=== PATIENT | male | born 1945 | race Caucasian/White ===

== ENCOUNTER 2017-11-04 12:25 | Inpatient (IN) | payer MEDICARE ==
--- NOTE | 2017-11-04 13:32 | XRAY ---
Indication: Short of breath 1 week. Comparison: August 01, 2011. PA/lateral chest again hyperinflated with left costophrenic angle blunting. No focal infiltrate, consolidation, or large effusion. Heart is not enlarged again demonstrating previous cardiothoracic surgery. Vascularity normal. Bony thorax intact again with mild osteopenia and degenerative changes. Impression: Stable nonacute hyperinflated chest with chronic features.
[2017-11-04 13:52] LABS: A-aADO2 35; ABG POTASSIUM 5.5 (3.5-5.1); ABG SITE LEFT RADIAL; ALLEN TEST OK? YES; ARTERIAL BLD GAS O2 SATURATION 96.7 % (95-100); ARTERIAL BLOOD GAS BASE EXCESS -5.8 (-2.0-2.0); ARTERIAL BLOOD GAS FIO2 21 %; ARTERIAL BLOOD GAS PCO2 30 mmHg (35-45); ARTERIAL BLOOD GAS PO2 77 mmHg (75-100); ARTERIAL BLOOD GAS pH 7.39 (7.35-7.45); CARBOXYHEMOGLOBIN 1.4 % THgb (0.0-6.9); HCO3- 18.2 (22-28); HGB O2 SAT 94.1 g/dF (94-100); Methhemoglobin 1.2 % (1.4-1.5); paO2 pAO1 0.69
[2017-11-04 13:54] LABS: INR 3.7 (0.8-3.0)
[2017-11-04 14:04] LABS: ALBUMIN 4.3 g/dL (3.4-5.0); ANION GAP 19.4 MEQ/L (5-15); BILIRUBIN,TOTAL 0.6 mg/dL (0.2-1.0); Calcium 9.1 mg/dL (8.5-10.1); Carbon Dioxide 19.3 mEq/L (21-32); Creatinine 1 2.7 mg/dl (0.55-1.30); Potassium 5.6 mEq/L (3.5-5.1); Total Protein 7.7 gm/dL (6.4-8.2)
[2017-11-04 14:17] LABS: INFLUENZA A NEGATIVE (NEGATIVE); INFLUENZA B NEGATIVE (NEGATIVE); RESPIRATORY SYNCTIAL VIRUS NEGATIVE (Negative)
[2017-11-04] MEDS: DUONEB 0.5-3 MG/3 ml Neb IH SCH ×3 (15:02→23:21)
[2017-11-04] MEDS ORDERED: Nitrostat 0.4 MG Tablet SL PRN (15:29)
[2017-11-04] MEDS ORDERED: NON-FORMULARY ITEM (Albuterol [Albuterol] 17 GM) IH PRN (15:29)
[2017-11-04] MEDS ORDERED: PROVENTIL COMMON CANISTER IH PRN (15:49)
[2017-11-04] MEDS ORDERED: MEDICATION INTERVENTION MC PRN ×2 (16:03→16:07)
[2017-11-04 16:39] LABS: BASOPHIL % 0.1 % (0.0-0.4); Basophil (Absolute #) 0.01 (0-0.4); Eosinophil % 0.3 % (0.00-5.0); Eosinophil (Absolute #) 0.03 (0-0.5); Granulocyte Absolute (ANC) 7.07 (1.4-6.9); Granulocytes % 81.6 % (36.0-66.0); Hematocrit 34.3 % (42-50); Hemoglobin 11.1 gm/dl (12.5-18.0); Lymphocyte (Absolute #) 0.83 (1.0-4.6); Lymphocytes % 9.6 % (24.0-44.0); Mean Cell Volume 102.1 fl (78-100); Mean Corpuscular Hgb Concent. 32.4 g/dl (32-36); Monocyte (Absolute #) 0.73 (0.0-1.3); Monocytes % 8.4 % (0.0-12.0); Platelet Count 108 K/mm3 (150-450); Red Blood Count 3.36 M/mm3 (4.1-5.6); Red Cell Distribution Width 12.8 % (11.5-14.0); White Blood Count 8.7 K/mm3 (4.0-10.5)
[2017-11-04] MEDS: LOPID 600 MG PO SCH (16:43)
[2017-11-04] MEDS: Lasix 40 MG PO SCH (16:46)
[2017-11-04] MEDS ORDERED: INSULIN ASPART 1 UNIT SQ SCH (17:00)
[2017-11-04] MEDS: Sodium Chloride 0.9% 1000 ML 1,000 ML IV SCH (17:28)
[2017-11-04] MEDS: ROCEPHIN 1 Gm-D5w 50 ml Bag** 1 G/50 ML IVPB IV SCH (17:28)
[2017-11-04] MEDS: NovoLOG Insulin SQ SCH ×2 (17:28→22:20)
[2017-11-04] MEDS: OSELTAMIVIR PHOSPHATE 30 MG CAP PO SCH ×2 (17:36→21:36)
[2017-11-04] MEDS ORDERED: Advair Hfa 115/21 Common canister IH SCH (19:00)
[2017-11-04] MEDS: ADVAIR 500-50 DISKUS IH SCH (19:49)
[2017-11-04] MEDS: Lopressor 25MG Tab PO SCH (21:35)
[2017-11-04] MEDS: Klor Con 10 MEQ PO SCH (21:35)
[2017-11-04] MEDS: ZOCOR 20MG PO SCH (21:36)
[2017-11-04] MEDS ORDERED: NON-FORMULARY ITEM (Potassium Chloride 20 Meq [Klor-Con 20 Meq] 20 MEQ) PO SCH (22:00)
[2017-11-04] MEDS ORDERED: NON-FORMULARY ITEM (Budesonide/Formoterol Fumarate [Symbicort 160-4.5 Mcg Inhaler] 6 GM) IH SCH (22:00)
[2017-11-05] MEDS: DUONEB 0.5-3 MG/3 ml Neb IH SCH ×6 (03:01→23:31)
[2017-11-05] MEDS: Sodium Chloride 0.9% 1000 ML 1,000 ML IV SCH ×2 (03:20→13:54)
[2017-11-05] MEDS: ADVAIR 500-50 DISKUS IH SCH ×2 (07:18→19:15)
[2017-11-05] MEDS: LOPID 600 MG PO SCH ×2 (07:48→17:02)
[2017-11-05] MEDS: NovoLOG Insulin SQ SCH ×2 (08:30→12:45)
[2017-11-05] MEDS: Zestril 10 MG PO SCH (09:34)
[2017-11-05] MEDS: THERAGRAN MULTIVITAMIN PO SCH (09:34)
[2017-11-05] MEDS: FOLATE 1 MG PO SCH (09:34)
[2017-11-05] MEDS: Lopressor 25MG Tab PO SCH ×2 (09:34→21:12)
[2017-11-05] MEDS: Klor Con 10 MEQ PO SCH (09:34)
[2017-11-05] MEDS: NORVASC 5 MG PO SCH (09:35)
[2017-11-05] MEDS: Vitamin B-12 500 MCG PO SCH (09:35)
[2017-11-05] MEDS: OSELTAMIVIR PHOSPHATE 30 MG CAP PO SCH ×2 (09:35→21:12)
[2017-11-05] MEDS: ROCEPHIN 1 Gm-D5w 50 ml Bag** 1 G/50 ML IVPB IV SCH (09:35)
[2017-11-05] MEDS: Lasix 40 MG PO SCH ×2 (09:35→17:02)
[2017-11-05] MEDS: ECOTRIN 81 MG PO SCH (09:35)
[2017-11-05] MEDS ORDERED: NON-FORMULARY ITEM (Liraglutide [Victoza 2-Pak] 1.2 MG) SQ SCH (10:00)
[2017-11-05] MEDS ORDERED: SAW PALMETTO FRUIT 450 MG PO SCH (10:00)
[2017-11-05] MEDS ORDERED: Lantus Insulin SQ SCH ×2 (10:00→17:00)
[2017-11-05] MEDS ORDERED: NON-FORMULARY ITEM (Folic Acid [Folic Acid] 0.8 MG) PO SCH (10:00)
[2017-11-05] MEDS ORDERED: NON-FORMULARY ITEM (Multivitamin [Multivitamins] 1 EACH) PO SCH (10:00)
[2017-11-05] MEDS ORDERED: INSULIN GLARGINE HUM REC ANLOG 7 UNIT SQ SCH (10:00)
[2017-11-05 11:40] LABS: INR 4.08 (0.8-3.0)
[2017-11-05 13:13] LABS: ALBUMIN 3.5 g/dL (3.4-5.0); ANION GAP 18.9 MEQ/L (5-15); BILIRUBIN,TOTAL 0.4 mg/dL (0.2-1.0); Calcium 8.4 mg/dL (8.5-10.1); Carbon Dioxide 17.6 mEq/L (21-32); Creatinine 1 2.66 mg/dl (0.55-1.30); Potassium 5.3 mEq/L (3.5-5.1); Total Protein 6.8 gm/dL (6.4-8.2)
--- NOTE | 2017-11-05 13:28 | PCM.NOTE ---
Date and Time: 11/05/17 1326 Subjective Assessment: still very short of breath, feels very exhausted - Review of Systems Constitutional: Lethargy, Malaise, Weakness, No Fever, No Chills Eyes: No Symptoms Ears, Nose, & Throat: No Symptoms Respiratory: Orthopnea, Short Of Breath, No Cough Cardiac: No Chest Pain, No Edema, No Syncope Abdominal/Gastrointestinal: No Abdominal Pain, No Nausea, No Vomiting, No Diarrhea Genitourinary Symptoms: No Dysuria Musculoskeletal: No Back Pain, No Neck Pain Skin: No Rash Neurological: No Dizziness, No Focal Weakness, No Sensory Changes Psychological: No Symptoms Endocrine: No Symptoms Hematologic/Lymphatic: No Symptoms Immunological/Allergic: No Symptoms Objective Exam General Appearance: no apparent distress, alert Neurologic Exam: alert, oriented x 3, cooperative, normal mood/affect, nml cerebellar function, sensation nml, No motor deficits Skin Exam: normal color, warm, dry Eye Exam: PERRL, EOMI, eyes nml inspection Ears, Nose, Throat Exam: normal ENT inspection, pharynx normal, moist mucous membranes Neck Exam: normal inspection, non-tender, supple, full range of motion Respiratory Exam: prolonged expirations, crackles/rales, rhonchi, No respiratory distress Cardiovascular Exam: regular rate/rhythm, normal heart sounds Gastrointestinal/Abdomen Exam: soft, No tenderness, No mass Extremity Exam: normal inspection, normal range of motion Back Exam: normal inspection, normal range of motion, No CVA tenderness, No vertebral tenderness Male Genitalia Exam: deferred Rectal Exam: deferred OBJECTIVE DATA Vital Signs: Vital Signs - 24 hr Temp Pulse Resp BP Pulse Ox 11/05/17 10:35 78 22 95 11/05/17 07:31 54 L 20 94 L 11/05/17 07:16 98.2 F 64 20 122/59 96 11/05/17 03:57 98.7 F 56 L 23 114/52 94 L 11/05/17 03:01 56 L 23 88 L 11/05/17 00:00 98.7 F 57 L 23 137/61 93 L 11/04/17 23:21 57 L 23 93 L 11/04/17 20:00 98.7 F 56 L 20 117/52 92 L 11/04/17 19:49 52 L 24 93 L 11/04/17 16:34 98 F 60 20 133/59 97 02/13/18 15:00 84 16 96 11/04/17 13:57 98.7 F 59 L 22 150/60 95 Pain Assessment - Last Documented Pain Intensity 3 Pain Scale Used 0-10 Pain Scale Intake and Output: Intake & Output 11/03/17 11/04/17 11/05/17 11/06/17 11:59 11:59 11:59 11:59 Intake Total 2160 240 Output Total 1050 Balance 1110 240 Weight 91.1 kg Lab Results: Accuchecks Date 11/04/17 Date 11/04/17 Time 16:19 Time 15:30 Accucheck Value: 210 Accucheck Value: 101 Accucheck Value: 248 Accucheck Value: 136 Accucheck Value: 145 Lab Results-Last 24 Hours 11/04/17 11/04/17 11/04/17 Range/Units 12:49 13:31 13:31 WBC 8.7 (4.0-10.5) K/mm3 RBC 3.36 L (4.1-5.6) M/mm3 Hgb 11.1 L (12.5-18.0) gm/dl Hct 34.3 L (42-50) % MCV 102.1 H (78-100) fl MCH 33.0 H (26-32) pg MCHC 32.4 (32-36) g/dl RDW 12.8 (11.5-14.0) % Plt Count 108 L (150-450) K/mm3 MPV 13.0 H (6-9.5) fl Gran % 81.6 H (36.0-66.0) % Lymphocytes % 9.6 L (24.0-44.0) % Monocytes % 8.4 (0.0-12.0) % Eosinophils % 0.3 (0.00-5.0) % Basophils % 0.1 (0.0-0.4) % Basophils # 0.01 (0-0.4) INR (0.8-3.0) Puncture Site LEFT RADIAL pCO2 30 L (35-45) mmHg pO2 77 (75-100) mmHg Base Excess -5.8 L (-2.0-2.0) O2 Saturation 94.1 (94-100) g/dF ABG pH 7.39 (7.35-7.45) ABG HCO3 18.2 L (22-28) ABG O2 Sat (Measured) 96.7 (95-100) % Manjit Test YES A-a Gradient 35 a/A Ratio 0.69 Hemoglobin 11.0 Carboxyhemoglobin 1.4 (0.0-6.9) % THgb Methemoglobin 1.2 L (1.4-1.5) % Potassium 5.5 H 5.6 H (3.5-5.1) Temperature 37.0 C POC O2 Flow Rate 21 % Sodium 138 (136-145) mEq/L Chloride 105 (98-107) mEq/L Carbon Dioxide 19.3 L (21-32) mEq/L Anion Gap 19.4 H (5-15) MEQ/L BUN 105 H (9-20) mg/dL Creatinine 2.70 H (0.55-1.30) mg/dl Estimated GFR 25 ML/MIN Glucose 103 (70-110) MG/DL Hemoglobin A1c (4.5-6.2) Calcium 9.1 (8.5-10.1) mg/dL Total Bilirubin 0.60 (0.2-1.0) mg/dL AST 19 (15-37) U/L ALT 15 (12-78) U/L Alkaline Phosphatase 90 (46-116) U/L Serum Total Protein 7.7 (6.4-8.2) gm/dL Albumin 4.3 (3.4-5.0) g/dL Influenza Type A Ag (NEGATIVE) Influenza Type B Ag (NEGATIVE) RSV (PCR) (Negative) 11/04/17 11/04/17 11/04/17 Range/Units 13:31 13:31 17:35 WBC (4.0-10.5) K/mm3 RBC (4.1-5.6) M/mm3 Hgb (12.5-18.0) gm/dl Hct (42-50) % MCV (78-100) fl MCH (26-32) pg MCHC (32-36) g/dl RDW (11.5-14.0) % Plt Count (150-450) K/mm3 MPV (6-9.5) fl Gran % (36.0-66.0) % Lymphocytes % (24.0-44.0) % Monocytes % (0.0-12.0) % Eosinophils % (0.00-5.0) % Basophils % (0.0-0.4) % Basophils # (0-0.4) INR 3.70 H (0.8-3.0) Puncture Site pCO2 (35-45) mmHg pO2 (75-100) mmHg Base Excess (-2.0-2.0) O2 Saturation (94-100) g/dF ABG pH (7.35-7.45) ABG HCO3 (22-28) ABG O2 Sat (Measured) (95-100) % Manjit Test A-a Gradient a/A Ratio Hemoglobin Carboxyhemoglobin (0.0-6.9) % THgb Methemoglobin (1.4-1.5) % Potassium (3.5-5.1) Temperature C POC O2 Flow Rate % Sodium (136-145) mEq/L Chloride (98-107) mEq/L Carbon Dioxide (21-32) mEq/L Anion Gap (5-15) MEQ/L BUN (9-20) mg/dL Creatinine (0.55-1.30) mg/dl Estimated GFR ML/MIN Glucose (70-110) MG/DL Hemoglobin A1c 6.2 (4.5-6.2) Calcium (8.5-10.1) mg/dL Total Bilirubin (0.2-1.0) mg/dL AST (15-37) U/L ALT (12-78) U/L Alkaline Phosphatase (46-116) U/L Serum Total Protein (6.4-8.2) gm/dL Albumin (3.4-5.0) g/dL Influenza Type A Ag NEGATIVE (NEGATIVE) Influenza Type B Ag NEGATIVE (NEGATIVE) RSV (PCR) NEGATIVE (Negative) 11/05/17 11/05/17 Range/Units 11:00 12:50 WBC (4.0-10.5) K/mm3 RBC (4.1-5.6) M/mm3 Hgb (12.5-18.0) gm/dl Hct (42-50) % MCV (78-100) fl MCH (26-32) pg MCHC (32-36) g/dl RDW (11.5-14.0) % Plt Count (150-450) K/mm3 MPV (6-9.5) fl Gran % (36.0-66.0) % Lymphocytes % (24.0-44.0) % Monocytes % (0.0-12.0) % Eosinophils % (0.00-5.0) % Basophils % (0.0-0.4) % Basophils # (0-0.4) INR 4.08 H (0.8-3.0) Puncture Site pCO2 (35-45) mmHg pO2 (75-100) mmHg Base Excess (-2.0-2.0) O2 Saturation (94-100) g/dF ABG pH (7.35-7.45) ABG HCO3 (22-28) ABG O2 Sat (Measured) (95-100) % Manjit Test A-a Gradient a/A Ratio Hemoglobin Carboxyhemoglobin (0.0-6.9) % THgb Methemoglobin (1.4-1.5) % Potassium 5.3 H (3.5-5.1) Temperature C POC O2 Flow Rate % Sodium 136 (136-145) mEq/L Chloride 105 (98-107) mEq/L Carbon Dioxide 17.6 L (21-32) mEq/L Anion Gap 18.9 H (5-15) MEQ/L BUN 90 H (9-20) mg/dL Creatinine 2.66 H (0.55-1.30) mg/dl Estimated GFR 25 ML/MIN Glucose 153 H (70-110) MG/DL Hemoglobin A1c (4.5-6.2) Calcium 8.4 L (8.5-10.1) mg/dL Total Bilirubin 0.40 (0.2-1.0) mg/dL AST 15 (15-37) U/L ALT 13 (12-78) U/L Alkaline Phosphatase 76 (46-116) U/L Serum Total Protein 6.8 (6.4-8.2) gm/dL Albumin 3.5 (3.4-5.0) g/dL Influenza Type A Ag (NEGATIVE) Influenza Type B Ag (NEGATIVE) RSV (PCR) (Negative) Radiology Exams: Radiology Procedures Category Date Time Status CHEST 2 VIEWS (PA AND LAT) Urgent Exams 11/04/17 13:12 Completed CHEST WITHOUT CONTRAST [CT] Stat Exams 11/05/17 13:25 Ordered Multi-Disciplinary Progress Notes: Multi-Disciplinary Progress Notes 11/05/17 10:25 (created 11/05/17 10:51) Respiratory Note by Josephine Bojorquez PT QUALIFIED FOR HOME OXYGEN PER DR. MATAMOROS ORDER. PT'S OXYGEN SAT ON ROOM AIR WHILE AT REST WAS 89%. PT WAS THEN WALKED DOWN [place] ON ROOM AIR WITH O2 SAT AT 94% WHILE WALKING. PT VISIBLY SOB WHILE WALKING EVEN THOUGH OXYGEN LEVEL DIDN'T DROP. NURSE AWARE. Initialized on 11/05/17 10:51 - END OF NOTE Assessment/Plan (1) Viral bronchitis Current Visit: Yes Status: Acute Assessment & Plan: Chief Complaint Diagnosis SOB Allergies Allergy/AdvReac Type Severity Reaction Status Date / Time No Known Drug Allergies Allergy Unverified 11/04/17 15:04 Vital Signs (Last 24 hours) Temp Pulse Resp BP Pulse Ox 11/05/17 10:35 78 22 95 11/05/17 07:31 54 L 20 94 L 11/05/17 07:16 98.2 F 64 20 122/59 96 11/05/17 03:57 98.7 F 56 L 23 114/52 94 L 11/05/17 03:01 56 L 23 88 L 11/05/17 00:00 98.7 F 57 L 23 137/61 93 L 11/04/17 23:21 57 L 23 93 L 11/04/17 20:00 98.7 F 56 L 20 117/52 92 L 11/04/17 19:49 52 L 24 93 L 11/04/17 16:34 98 F 60 20 133/59 97 11/04/17 15:00 84 16 96 11/04/17 13:57 98.7 F 59 L 22 150/60 95 Home Medications Medication Instructions Recorded Confirmed Last Taken Type Albuterol 17 gm IH Q6H PRN 11/04/17 11/04/17 11/04/17 History Amlodipine Besylate 5 mg 5 mg PO DAILY 11/04/17 11/04/17 11/04/17 History [Norvasc 5 mg] Aspirin EC 81 mg [Ecotrin 81 81 mg PO DAILY 11/04/17 11/04/17 11/04/17 History mg] Budesonide/Formoterol Fumarate 6 gm IH BID 11/04/17 11/04/17 11/04/17 History [Symbicort 160-4.5 Mcg Inhaler] Cyanocobalamin 500 Mcg [Vitamin 500 mcg PO DAILY 11/04/17 11/04/17 11/04/17 History B-12 500 MCG] Folic Acid 0.8 mg PO DAILY 11/04/17 11/04/17 11/04/17 History Furosemide 40 mg [Lasix 40 40 mg PO BID 11/04/17 11/04/17 11/04/17 History MG] Gemfibrozil 600 mg [Lopid 600 600 mg PO BID 11/04/17 11/04/17 11/04/17 History mg] Insulin Aspart [Novolog Flexpen] 0 unit SQ TIDWMEALS 11/04/17 11/04/17 11/04/17 History Insulin Glargine,Hum.rec.anlog 7 unit SQ DAILY 11/04/17 11/04/17 11/04/17 History [Familia Do] Liraglutide [Victoza 2-Tushar] 1.2 mg SQ DAILY 11/04/17 11/04/17 11/04/17 History Lisinopril 10 mg [Zestril 10 10 mg PO DAILY 11/04/17 11/04/17 11/04/17 History MG] Metoprolol Tartrate 25 mg 25 mg PO BID 11/04/17 11/04/17 11/04/17 History [Lopressor 25MG Tab] Multivitamin [Multivitamins] 1 each PO DAILY 11/04/17 11/04/17 11/04/17 History Nitroglycerin 0.4 mg Tablet 0.4 mg SL Q5MIN PRN MR X 3 PRN 11/04/17 11/04/17 Unknown History [Nitrostat 0.4 MG Tablet] Potassium Chloride 20 Meq 20 meq PO BID 11/04/17 11/04/17 11/04/17 History [Klor-Con 20 MEQ] Saw [place] Fruit [Saw [place]] 450 mg PO DAILY 11/04/17 11/04/17 11/04/17 History Simvastatin 20Mg [Zocor 20Mg] 20 mg PO HS 11/04/17 11/04/17 11/04/17 History Warfarin Sodium 2 mg [Coumadin 2 mg PO DAILY 11/04/17 11/04/17 11/04/17 History 2 MG] Azithromycin [Zithromax] 250 mg PO DAILY 5 Days #6 tablet 11/05/17 Unknown Rx Current Medications Generic Name Dose Route Start Last Admin Trade Name Freq PRN Reason Stop Dose Admin Albuterol Sulfate 2 puff 11/04/17 15:49 Proventil Common Canister IH 12/04/17 15:48 Q6H PRN PRN Albuterol/Ipratropium 3 ml 11/04/17 15:00 11/05/17 10:35 Duoneb 0.5-3 Mg/3 Ml Neb IH 12/04/17 14:59 3 ml Q4HRT RIGO Administration Amlodipine Besylate 5 mg 11/05/17 10:00 11/05/17 09:35 Norvasc 5 Mg PO 12/05/17 09:59 5 mg DAILY RIGO Administration Aspirin 81 mg 11/05/17 10:00 11/05/17 09:35 Ecotrin 81 Mg PO 12/05/17 09:59 81 mg DAILY RIGO Administration Cyanocobalamin 500 mcg 11/05/17 10:00 11/05/17 09:35 Vitamin B-12 500 Mcg PO 12/05/17 09:59 500 mcg DAILY RIGO Administration Folic Acid 1 mg 11/05/17 10:00 11/05/17 09:34 Folate 1 Mg PO 12/05/17 09:59 1 mg DAILY RIGO Administration Furosemide 40 mg 11/04/17 17:00 11/05/17 09:35 Lasix 40 Mg PO 12/04/17 16:59 40 mg BID DIURETIC RIGO Administration Gemfibrozil 600 mg 11/04/17 16:30 11/05/17 07:48 Lopid 600 Mg PO 12/04/17 16:29 600 mg BIDAC RIGO Administration Ceftriaxone Sodium/Dextrose 1 g in 50 mls @ 100 mls/hr 11/04/17 17:15 09:35 Rocephin 1 Gm-D5w 50 Ml Bag IV 12/04/17 17:14 100 mls/hr Q24H10 RIGO Administration Sodium Chloride 1,000 mls @ 100 mls/hr 11/04/17 17:00 11/05/17 03:20 Sodium Chloride 0.9% 1000 Ml IV 12/04/17 16:59 100 mls/hr .Q10H RIGO Administration Lisinopril 10 mg 11/05/17 10:00 11/05/17 09:34 Zestril 10 Mg PO 12/05/17 09:59 10 mg DAILY RIGO Administration Methylprednisolone Sodium Succinate 40 mg 11/05/17 14:00 Solu-Medrol 40 Mg IV 12/05/17 13:59 BID RIGO Metoprolol Tartrate 25 mg 11/04/17 22:00 11/05/17 09:34 Lopressor 25mg Tab PO 12/04/17 21:59 25 mg BID RIGO Administration Multivitamins 1 tab 11/05/17 10:00 11/05/17 09:34 Theragran Multivitamin PO 12/05/17 09:59 1 tab DAILY RIGO Administration Nitroglycerin 0.4 mg 11/04/17 15:29 Nitrostat 0.4 Mg Tablet SL 12/04/17 15:28 Q5MIN PRN MR X 3 PRN CHEST PAIN Oseltamivir Phosphate 30 mg 11/04/17 17:30 11/05/17 09:35 Oseltamivir Phosphate 30 Mg Cap PO 11/08/17 22:01 30 mg BID RIGO Administration Toujeo Insulin 7 each 11/05/17 17:00 SQ 12/05/17 16:59 1700 RIGO Novolog Insulin 0 each 11/05/17 17:00 SQ 12/05/17 16:59 TIDWM RIGO Potassium Chloride 20 meq 11/04/17 22:00 11/05/17 09:34 Klor Con 10 Meq PO 12/04/17 21:59 20 meq BID RIGO Administration Fluticasone/Salmeterol 1 each 11/04/17 19:00 11/05/17 07:18 Advair 500-50 Diskus IH 12/04/17 18:59 1 each BIDRT RIGO Administration Simvastatin 20 mg 11/04/17 22:00 11/04/17 21:36 Zocor 20mg PO 12/04/17 21:59 20 mg HS IRGO Administration Warfarin Sodium 2 mg 11/06/17 18:00 Coumadin 2 Mg PO 12/06/17 17:59 [email or web address] [facility] Warfarin Sodium 1 mg 11/05/17 18:00 Coumadin 1 Mg PO 12/05/17 17:59 [email or web address] [facility] Discontinued Medications Generic Name Dose Route Start Last Admin Trade Name Pawel PRN Reason Stop Dose Admin Insulin Aspart 1 unit 11/04/17 17:00 11/05/17 12:45 Novolog Insulin SQ 12/04/17 16:59 7 unit TIDWM [facility] Administration Insulin Glargine 6 unit 11/05/17 10:00 11/05/17 12:48 Lantus Insulin SQ 12/05/17 09:59 Not Given DAILY [facility] Fluticasone/Salmeterol 2 puff 11/04/17 19:00 Advair Hfa 115/21 Common Canister* IH 12/04/17 18:59 BIDRT RIGO Intake & Output (Last 24 hours) 11/03/17 11/04/17 11/05/17 11/06/17 11:59 11:59 11:59 11:59 Intake Total 2160 240 Output Total 1050 Balance 1110 240 Weight 91.1 kg Laboratory Results (Last 24 hours) 11/05/17 11/05/17 11/04/17 12:50 11:00 17:35 WBC RBC Hgb Hct MCV MCH MCHC RDW Plt Count MPV Gran % Lymphocytes % Monocytes % Eosinophils % Basophils % Basophils # INR 4.08 H Puncture Site pCO2 pO2 Base Excess O2 Saturation ABG pH ABG HCO3 ABG O2 Sat (Measured) Manjit Test A-a Gradient a/A Ratio Hemoglobin Carboxyhemoglobin Methemoglobin Potassium 5.3 H Temperature POC O2 Flow Rate Sodium 136 Chloride 105 Carbon Dioxide 17.6 L Anion Gap 18.9 H BUN 90 H Creatinine 2.66 H Estimated GFR 25 Glucose 153 H Hemoglobin A1c 6.2 Calcium 8.4 L Total Bilirubin 0.40 AST 15 ALT 13 Alkaline Phosphatase 76 Serum Total Protein 6.8 Albumin 3.5 Influenza Type A Ag Influenza Type B Ag RSV (PCR) 11/04/17 11/04/17 11/04/17 13:31 13:31 13:31 WBC RBC Hgb Hct MCV MCH MCHC RDW Plt Count MPV Gran % Lymphocytes % Monocytes % Eosinophils % Basophils % Basophils # INR 3.70 H Puncture Site pCO2 pO2 Base Excess O2 Saturation ABG pH ABG HCO3 ABG O2 Sat (Measured) Manjit Test A-a Gradient a/A Ratio Hemoglobin Carboxyhemoglobin Methemoglobin Potassium 5.6 H Temperature POC O2 Flow Rate Sodium 138 Chloride 105 Carbon Dioxide 19.3 L Anion Gap 19.4 H BUN 105 H Creatinine 2.70 H Estimated GFR 25 Glucose 103 Hemoglobin A1c Calcium 9.1 Total Bilirubin 0.60 AST 19 ALT 15 Alkaline Phosphatase 90 Serum Total Protein 7.7 Albumin 4.3 Influenza Type A Ag NEGATIVE Influenza Type B Ag NEGATIVE RSV (PCR) NEGATIVE 11/04/17 11/04/17 13:31 12:49 WBC 8.7 RBC 3.36 L Hgb 11.1 L Hct 34.3 L MCV 102.1 H MCH 33.0 H MCHC 32.4 RDW 12.8 Plt Count 108 L MPV 13.0 H Gran % 81.6 H Lymphocytes % 9.6 L Monocytes % 8.4 Eosinophils % 0.3 Basophils % 0.1 Basophils # 0.01 INR Puncture Site LEFT RADIAL pCO2 30 L pO2 77 Base Excess -5.8 L O2 Saturation 94.1 ABG pH 7.39 ABG HCO3 18.2 L ABG O2 Sat (Measured) 96.7 Manjit Test YES A-a Gradient 35 a/A Ratio 0.69 Hemoglobin 11.0 Carboxyhemoglobin 1.4 Methemoglobin 1.2 L Potassium 5.5 H Temperature 37.0 POC O2 Flow Rate 21 Sodium Chloride Carbon Dioxide Anion Gap BUN Creatinine Estimated GFR Glucose Hemoglobin A1c Calcium Total Bilirubin AST ALT Alkaline Phosphatase Serum Total Protein Albumin Influenza Type A Ag Influenza Type B Ag RSV (PCR) Orders (Last 24 hours) Category Date Time Status Accucheck ACHS Care 11/04/17 12:49 Active Admission/Status Order ROUTINE Care 11/04/17 12:36 Active Miscellaneous Nursing Order ROUTINE Care 11/04/17 12:49 Active Miscellaneous Nursing Order ROUTINE Care 11/04/17 16:09 Active Cardio-Pulmonary Rehab .as ordered Cons 11/04/17 13:57 Active 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 ROUTINE Cons 11/04/17 14:16 Active 1800 Calorie ADA Diet 11/04/17 Dinner Active Nutritional Admission Screen once Diet 11/04/17 14:16 Completed CHEST 2 VIEWS (PA AND LAT) Urgent Exams 11/04/17 13:12 Completed CHEST WITHOUT CONTRAST [CT] Stat Exams 11/05/17 13:25 Ordered ARTERIAL BLOOD GASES Urgent Lab 11/04/17 12:49 Completed CBC AM.LAB Lab 11/06/17 04:00 Ordered CBC W DIFF Urgent Lab 11/04/17 13:31 Completed CMP AM.LAB Lab 11/06/17 04:00 Ordered CMP Urgent Lab 11/04/17 13:31 Completed CMP Urgent Lab 11/05/17 12:50 Completed HEMOGLOBIN A1C Urgent Lab 11/04/17 17:35 Completed PROTIME WITH INR Urgent Lab 11/04/17 13:31 Completed PT INR [PROTIME WITH INR] Urgent Lab 11/05/17 11:00 Completed Respiratory Panel Urgent Lab 11/04/17 13:31 Completed Albuterol Common Canister [Proventil Common Canister Med 11/04/17 15:49 Active ] 2 puff IH Q6H PRN PRN Albuterol/Ipratropium 3ml Neb* [DUONEB 0.5-3 MG/3 ml Med 11/04/17 15:00 Active Neb] 3 ml IH Q4HRT Amlodipine Besylate 5 mg [Norvasc 5 mg] Med 11/05/17 10:00 Active 5 mg PO DAILY Aspirin EC 81 mg [Ecotrin 81 mg] Med 11/05/17 10:00 Active 81 mg PO DAILY Ceftriaxone 1 GM/50 ML PREMIX* [ROCEPHIN 1 Gm-D5w 50 ml Med 11/04/17 17:15 Active Bag] 1 g in 50 ml IV Q24H10 Cyanocobalamin 500 Mcg [Vitamin B-12 500 MCG] Med 11/05/17 10:00 Active 500 mcg PO DAILY Fluticasone/Salmeterol 115/21 [Advair Hfa 115/21 Common Med 11/04/17 19:00 Discontinued canister*] 2 puff IH BIDRT Fluticasone/Salmeterol 500/50* [Advair 500-50 Diskus Med 11/04/17 19:00 Active ] 1 each IH BIDRT Folic Acid 1 mg [Folate 1 mg] Med 11/05/17 10:00 Active 1 mg PO DAILY Furosemide 40 mg [Lasix 40 MG] Med 11/04/17 17:00 Active 40 mg PO BID DIURETIC Gemfibrozil 600 mg [Lopid 600 mg] Med 11/04/17 16:30 Active 600 mg PO BIDAC Insulin Aspart [NovoLOG Insulin] Med 11/04/17 17:00 Discontinued 1 unit SQ TIDWM Insulin Glargine [Lantus Insulin] Med 11/05/17 10:00 Discontinued 6 unit SQ DAILY Lisinopril 10 mg [Zestril 10 MG] Med 11/05/17 10:00 Active 10 mg PO DAILY Medication Intervention Med 11/04/17 16:03 Active 0 each MC PRN PRN Medication Intervention Med 11/04/17 16:07 Active 0 each MC PRN PRN Methylprednisolone Sod Suc 40M [solu-MEDROL 40 MG] Med 11/05/17 14:00 Active 40 mg IV BID Metoprolol Tartrate 25 mg [Lopressor 25MG Tab] Med 11/04/17 22:00 Active 25 mg PO BID Multivitamins,Therapeutic Tab* [Theragran Multivitamin* Med 11/05/17 10:00 Active ] 1 tab PO DAILY NaCl 0.9% 1000 ml [Sodium Chloride 0.9% 1000 ML] 1,000 Med 11/04/17 17:00 Active ml IV 100 mls/hr Nitroglycerin 0.4 mg Tablet [Nitrostat 0.4 MG Tablet Med 11/04/17 15:29 Active ] 0.4 mg SL Q5MIN PRN MR X 3 PRN Oseltamivir Phosphate [Oseltamivir Phosphate 30 mg Cap] Med 11/04/17 17:30 Active 30 mg PO BID Patient Own Med [Patient Own Medication] Med 11/05/17 17:00 Active 0 each SQ TIDWM Patient Own Med [Patient Own Medication] Med 11/05/17 17:00 Active 7 each SQ 1700 Potassium Chloride 10 Meq Tab* [Klor Con 10 MEQ] Med 11/04/17 22:00 Active 20 meq PO BID Simvastatin 20Mg [Zocor 20Mg] Med 11/04/17 22:00 Active 20 mg PO HS Warfarin Sodium 1 mg [Coumadin 1 MG] Med 11/05/17 18:00 Hold 1 mg PO [email or web address] Warfarin Sodium 2 mg [Coumadin 2 MG] Med 11/06/17 18:00 Active 2 mg PO [email or web address] Oxygen NASAL CANNULA 3 lpm RT 11/05/17 03:56 Active Qualify for Home Oxygen TODAY RT 11/05/17 08:53 Completed Respiratory MDI BID RT 11/04/17 19:00 Active Respiratory Nebulizer Q4H RT 11/04/17 15:00 Active Patient Care Notes (Last 24 hours) 11/05/17 10:25 (created 11/05/17 10:51) Respiratory Note by Josephine Bojorquez PT QUALIFIED FOR HOME OXYGEN PER DR. MATAMOROS ORDER. PT'S OXYGEN SAT ON ROOM AIR WHILE AT REST WAS 89%. PT WAS THEN WALKED DOWN [place] ON ROOM AIR WITH O2 SAT AT 94% WHILE WALKING. PT VISIBLY SOB WHILE WALKING EVEN THOUGH OXYGEN LEVEL DIDN'T DROP. NURSE AWARE. Initialized on 11/05/17 10:51 - END OF NOTE Code(s): J20.8 - ACUTE BRONCHITIS DUE TO OTHER SPECIFIED ORGANISMS (2) COPD exacerbation Current Visit: Yes Status: Acute Code(s): J44.1 - CHRONIC OBSTRUCTIVE PULMONARY DISEASE W (ACUTE) EXACERBATION (3) Acute renal failure Current Visit: Yes Status: Acute
[2017-11-05] MEDS: solu-MEDROL 40 MG IV SCH ×2 (13:54→21:12)
--- NOTE | 2017-11-05 14:15 | XRAY ---
Indication: Short of breath. Multiple contiguous axial images obtained through the chest without contrast as ordered. Comparison: None Examination of the lung parenchyma demonstrates mild/moderate diffuse bilateral calcified pleural plaquing/thickening and subpleural fibrosis/scarring. Peripheral posterior right lower lobe demonstrates ovoid irregular masslike opacity with irregular/spiculated margins overall measuring 2 x 5 cm in greatest axial dimension with 8 mm calcification. Partial differential includes granuloma, hamartoma, round atelectasis, or malignancy. Just superior to this is a small focus of subsegmental atelectasis. No effusion. Heart is not enlarged and demonstrates previous CABG surgery. No pericardial effusion. Aorta is mildly arteriosclerotic without aneurysmal dilatation. Subcarinal and right hilar calcified nodes. No pathologic mediastinal lymphadenopathy. Bony thorax intact with mild degenerative changes throughout the spine. Limited upper abdomen degraded by respiration artifact and grossly unremarkable. Impression: 1. 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 2. Posterior right lower lobe irregular ovoid masslike opacity with subcentimeter calcification as detailed. Partial differential offered includes granuloma, hamartoma, round atelectasis, or malignancy. Comparison studies would be of benefit if performed elsewhere. PET/CT may yield further information as well. CT DI 21.11
[2017-11-05] MEDS ORDERED: PATIENT OWN MEDICATION SQ SCH (17:00)
[2017-11-05] MEDS: PATIENT OWN MEDICATION SQ SCH ×2 (17:07→20:30)
[2017-11-05] MEDS ORDERED: BENADRYL 25 MG CAPSULE PO PRN (17:25)
[2017-11-05] MEDS ORDERED: Coumadin 1 MG PO SCH (18:00)
[2017-11-05] MEDS: ZOCOR 20MG PO SCH (21:12)
[2017-11-06] MEDS: Sodium Chloride 0.9% 1000 ML 1,000 ML IV SCH ×3 (00:01→09:51)
[2017-11-06] MEDS: DUONEB 0.5-3 MG/3 ml Neb IH SCH ×7 (03:27→23:06)
[2017-11-06 06:12] LABS: Hematocrit 27.5 % (42-50); Hemoglobin 8.9 gm/dl (12.5-18.0); Mean Cell Volume 102.6 fl (78-100); Mean Corpuscular Hemoglobin 33.2 pg (26-32); Mean Corpuscular Hgb Concent. 32.4 g/dl (32-36); Mean Platelet Volume 13.2 fl (6-9.5); Platelet Count 68 K/mm3 (150-450); Red Blood Count 2.68 M/mm3 (4.1-5.6); Red Cell Distribution Width 12.9 % (11.5-14.0); White Blood Count 3.9 K/mm3 (4.0-10.5)
[2017-11-06] MEDS: ADVAIR 500-50 DISKUS IH SCH ×2 (06:44→19:12)
[2017-11-06 06:46] LABS: ALBUMIN 3.1 g/dL (3.4-5.0); ANION GAP 16.1 MEQ/L (5-15); BILIRUBIN,TOTAL 0.3 mg/dL (0.2-1.0); Calcium 8.4 mg/dL (8.5-10.1); Carbon Dioxide 16.4 mEq/L (21-32); Creatinine 1 2.49 mg/dl (0.55-1.30); Potassium 5.1 mEq/L (3.5-5.1); Total Protein 6.3 gm/dL (6.4-8.2)
[2017-11-06 08:01] LABS: Slide Review YES
[2017-11-06] MEDS: NORVASC 5 MG PO SCH (08:28)
[2017-11-06] MEDS: Lasix 40 MG PO SCH ×2 (08:28→17:31)
[2017-11-06] MEDS: Lopressor 25MG Tab PO SCH ×2 (08:28→21:14)
[2017-11-06] MEDS: ECOTRIN 81 MG PO SCH (08:28)
[2017-11-06] MEDS: FOLATE 1 MG PO SCH (08:28)
[2017-11-06] MEDS: OSELTAMIVIR PHOSPHATE 30 MG CAP PO SCH ×2 (08:29→21:14)
[2017-11-06] MEDS: LOPID 600 MG PO SCH ×2 (08:29→17:32)
[2017-11-06] MEDS: THERAGRAN MULTIVITAMIN PO SCH (08:29)
[2017-11-06] MEDS: Zestril 10 MG PO SCH (08:29)
[2017-11-06] MEDS: Vitamin B-12 500 MCG PO SCH (08:30)
[2017-11-06] MEDS: PATIENT OWN MEDICATION SQ SCH ×4 (08:30→21:19)
--- NOTE | 2017-11-06 09:03 | PCM.NOTE ---
Date and Time: 11/06/17900 Subjective Assessment: still very short of breath - Review of Systems Constitutional: No Fever, No Chills Eyes: No Symptoms Ears, Nose, & Throat: No Symptoms Respiratory: Cough, Orthopnea, Short Of Breath Cardiac: No Chest Pain, No Edema, No Syncope Abdominal/Gastrointestinal: No Abdominal Pain, No Nausea, No Vomiting, No Diarrhea Genitourinary Symptoms: No Dysuria Musculoskeletal: No Back Pain, No Neck Pain Skin: No Rash Neurological: No Dizziness, No Focal Weakness, No Sensory Changes Psychological: No Symptoms Endocrine: No Symptoms Hematologic/Lymphatic: No Symptoms Immunological/Allergic: No Symptoms Objective Exam General Appearance: no apparent distress, alert Neurologic Exam: alert, oriented x 3, cooperative, normal mood/affect, nml cerebellar function, sensation nml, No motor deficits Skin Exam: normal color, warm, dry Eye Exam: PERRL, EOMI, eyes nml inspection Ears, Nose, Throat Exam: normal ENT inspection, pharynx normal, moist mucous membranes Neck Exam: normal inspection, non-tender, supple, full range of motion Respiratory Exam: normal breath sounds, lungs clear, No respiratory distress Cardiovascular Exam: regular rate/rhythm, normal heart sounds Gastrointestinal/Abdomen Exam: soft, No tenderness, No mass Extremity Exam: normal inspection, normal range of motion Back Exam: normal inspection, normal range of motion, No CVA tenderness, No vertebral tenderness Male Genitalia Exam: deferred Rectal Exam: deferred OBJECTIVE DATA Vital Signs: Vital Signs - 24 hr Temp Pulse Resp BP Pulse Ox 11/06/17 07:28 97.7 F 50 L 18 156/70 94 L 11/06/17 06:45 58 L 24 98 11/06/17 04:00 98.3 F 56 L 19 108/52 95 11/05/17 23:58 97.6 F 59 L 18 133/60 90 L 11/05/17 23:37 59 L 18 90 L 11/05/17 20:00 98.9 F 60 17 125/56 93 L 11/05/17 19:20 60 30 H 93 L 11/05/17 16:30 99.1 F 60 20 132/63 94 L 11/05/17 15:03 96 11/05/17 14:53 63 24 91 L 11/05/17 14:04 98.7 F 60 22 141/63 93 L 11/05/17 10:35 78 22 95 Oxygen-Last 24 hours O2 Percentage 2 Liters = 28% O2 Percentage 2 Liters = 28% O2 Percentage 3 Liters = 32% O2 Percentage 3 Liters = 32% Pain Assessment - Last Documented Pain Intensity 4 Pain Scale Used 0-10 Pain Scale Intake and Output: Intake & Output 11/03/17 11/04/17 11/05/17 11/06/17 11:59 11:59 11:59 11:59 Intake Total 2160 4227 Output Total 1050 1100 Balance 1110 3127 Weight 91.1 kg Lab Results: Accuchecks Date 11/05/17 Time 20:30 Accucheck Value: 117 Accucheck Value: 117 Accucheck Value: 210 Lab Results-Last 24 Hours 11/05/17 11/05/17 11/06/17 Range/Units 11:00 12:50 05:49 WBC 3.9 L (4.0-10.5) K/mm3 RBC 2.68 L (4.1-5.6) M/mm3 Hgb 8.9 L (12.5-18.0) gm/dl Hct 27.5 L (42-50) % MCV 102.6 H (78-100) fl MCH 33.2 H (26-32) pg MCHC 32.4 (32-36) g/dl RDW 12.9 (11.5-14.0) % Plt Count 68 L (150-450) K/mm3 MPV 13.2 H (6-9.5) fl INR 4.08 H (0.8-3.0) Sodium 136 (136-145) mEq/L Potassium 5.3 H (3.5-5.1) mEq/L Chloride 105 (98-107) mEq/L Carbon Dioxide 17.6 L (21-32) mEq/L Anion Gap 18.9 H (5-15) MEQ/L BUN 90 H (9-20) mg/dL Creatinine 2.66 H (0.55-1.30) mg/dl Estimated GFR 25 ML/MIN Glucose 153 H (70-110) MG/DL Calcium 8.4 L (8.5-10.1) mg/dL Total Bilirubin 0.40 (0.2-1.0) mg/dL AST 15 (15-37) U/L ALT 13 (12-78) U/L Alkaline Phosphatase 76 (46-116) U/L Serum Total Protein 6.8 (6.4-8.2) gm/dL Albumin 3.5 (3.4-5.0) g/dL Slides for Path Review YES 11/06/17 Range/Units 05:49 WBC (4.0-10.5) K/mm3 RBC (4.1-5.6) M/mm3 Hgb (12.5-18.0) gm/dl Hct (42-50) % MCV (78-100) fl MCH (26-32) pg MCHC (32-36) g/dl RDW (11.5-14.0) % Plt Count (150-450) K/mm3 MPV (6-9.5) fl INR (0.8-3.0) Sodium 134 L (136-145) mEq/L Potassium 5.1 (3.5-5.1) mEq/L Chloride 107 (98-107) mEq/L Carbon Dioxide 16.4 L (21-32) mEq/L Anion Gap 16.1 H (5-15) MEQ/L BUN 97 H (9-20) mg/dL Creatinine 2.49 H (0.55-1.30) mg/dl Estimated GFR 27 ML/MIN Glucose 243 H (70-110) MG/DL Calcium 8.4 L (8.5-10.1) mg/dL Total Bilirubin 0.30 (0.2-1.0) mg/dL AST 16 (15-37) U/L ALT 14 (12-78) U/L Alkaline Phosphatase 64 (46-116) U/L Serum Total Protein 6.3 L (6.4-8.2) gm/dL Albumin 3.1 L (3.4-5.0) g/dL Slides for Path Review Radiology Exams: Radiology Procedures Category Date Time Status CHEST 2 VIEWS (PA AND LAT) Urgent Exams 11/04/17 13:12 Completed CHEST WITHOUT CONTRAST [CT] Stat Exams 11/05/17 13:25 Completed Multi-Disciplinary Progress Notes: Multi-Disciplinary Progress Notes 11/05/17 13:35 (created 11/05/17 14:00) Case Management Note by Karin Mejias DR. ROUNDED AND EVALUATED, DISCUSSED PLAN OF CARE WITH PT//DAUGHTER AT BEDSIDE. ALL QUESTIONS ANSWERED, VERBALIZED UNDERSTANDING TO ALL INFORMATION. ALL IN AGREEMENT. DECLINED ADDNL NEEDS AT PRESENT. WILL CONTINUE TO FOLLOW. Initialized on 11/05/17 14:00 - END OF NOTE 11/05/17 10:25 (created 11/05/17 10:51) Respiratory Note by Josephine Bojorquez PT QUALIFIED FOR HOME OXYGEN PER DR. MATAMOROS ORDER. PT'S OXYGEN SAT ON ROOM AIR WHILE AT REST WAS 89%. PT WAS THEN WALKED DOWN [place] ON ROOM AIR WITH O2 SAT AT 94% WHILE WALKING. PT VISIBLY SOB WHILE WALKING EVEN THOUGH OXYGEN LEVEL DIDN'T DROP. NURSE AWARE. Initialized on 11/05/17 10:51 - END OF NOTE Assessment/Plan (1) Viral bronchitis Current Visit: Yes Status: Acute Code(s): J20.8 - ACUTE BRONCHITIS DUE TO OTHER SPECIFIED ORGANISMS (2) COPD exacerbation Current Visit: Yes Status: Acute Code(s): J44.1 - CHRONIC OBSTRUCTIVE PULMONARY DISEASE W (ACUTE) EXACERBATION (3) Acute renal failure Current Visit: Yes Status: Acute Qualifiers: Acute renal failure type: unspecified Qualified Code(s): N17.9 - Acute kidney failure, unspecified (4) Asbestos pneumoconiosis Current Visit: Yes Status: Acute Code(s): J61 - PNEUMOCONIOSIS DUE TO ASBESTOS AND OTHER MINERAL FIBERS
[2017-11-06] MEDS: ROCEPHIN 1 Gm-D5w 50 ml Bag** 1 G/50 ML IVPB IV SCH (09:50)
[2017-11-06] MEDS: solu-MEDROL 40 MG IV SCH ×2 (09:50→21:14)
[2017-11-06 10:50] LABS: INR 3.23 (0.8-3.0)
--- NOTE | 2017-11-06 15:14 | CONS ---
CONSULT DATE: 11/06/2017 HISTORY: Harsh Small is a 72 year-old male with history of chronic obstructive pulmonary disease known to me but has not followed for over the last two years, who has been admitted with flu-like symptoms that started two to three days prior to admission. The patient reports that he continued to take dqto-gwb-tawzcut cough medicine despite which symptoms prevented him from sleeping all night. He was seen by Dr. Barnes in the office and was hospitalized with complaints of shortness of breath. A chest x-ray followed by CT chest was performed that showed bilateral pleural plaques along with a right mid lung area of atelectasis with partial calcification. The patient reports that he has been diagnosed with chronic obstructive pulmonary disease and asbestosis. His last CT scan from 2011 performed at [facility] continued to show these changes except the right mid lung lesion was somewhat smaller than current lesion. A possibility of malignancy cannot be excluded and a PET scan was advised. Today the patient feels well. He reports that he was on IV fluids which have been stopped due to the patient feeling better. PAST MEDICAL HISTORY: Positive for history of hypertension, chronic atrial fibrillation for which he is on anticoagulation with supratherapeutic international normalized ratio. History of chronic renal insufficiency for which he sees Dr. Oglesby. History of diabetes mellitus. PAST SURGICAL HISTORY: As above. PERSONAL AND SOCIAL HISTORY: He smoked only for a year or so when he was 30 years old. 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 MEDICATIONS: Home and current medications are reviewed. ALLERGIES: ALLERGIES NOTED. PHYSICAL EXAMINATION: This is an elderly male who appears mildly tachypneic although able to speak full sentences. Vital signs are noted. HEENT: Normocephalic. Oral exam is unremarkable. NECK: Supple. CVS: First and second heart sounds with some irregularity. RESPIRATORY: Shows diminished breath sounds. Crackles are heard at lung bases. ABDOMEN: Soft. EXTREMITIES: No clubbing is noted. 1 to 2+ leg edema is seen. LABORATORY DATA AND TESTS: International normalized ratio 3.23. White blood cell count 3.9, hemoglobin 8.9, hematocrit 27, PLT 68,000. Sodium 134, potassium 5.1, chloride 107, bicarb 16, glucose 243, BUN 97 and creatinine of 2.5. Glomerular filtration rate is 27. Chest CT was noted. ASSESSMENT: This is a 72 year old male admitted with: 1) Shortness of breath which appears to be due to acute bronchitis which has resolved. 2) Features suggestive of asbestosis with right mid lung mass lesion which would require PET scan upon discharge. 3) Renal failure appears acute on chronic. Dehydration? 4) Hypertension. 5) Diabetes mellitus. 6) Coagulopathy. 7) Chronic atrial fibrillation. 8) General debilitation. RECOMMENDATIONS: I discussed CT findings with patient. The last CT scan was about six years ago, will obtain PET scan upon discharge. Need to continue to follow the changes for stability of asbestosis. PFT as outpatient. Continue other supportive care management, electrolytes and other hemodynamic parameters. Renal has been consulted. The patient's condition remain guarded and prognosis appears reasonably well. I am more concerned about the patient's elevated BUN and creatinine. The patient states that he has followed with Dr. Oglesby. Possibility of dialysis was also discussed in the past. Thank you for allowing me to participate in the care of Harsh Small.
[2017-11-06] MEDS ORDERED: Coumadin 2 MG PO SCH (18:00)
[2017-11-06] MEDS: ZOCOR 20MG PO SCH (21:14)
[2017-11-07] MEDS: DUONEB 0.5-3 MG/3 ml Neb IH SCH ×3 (06:02→11:40)
[2017-11-07 06:39] LABS: INR 2.08 (0.8-3.0)
[2017-11-07] MEDS: ADVAIR 500-50 DISKUS IH SCH (07:12)
[2017-11-07] MEDS: Lasix 40 MG PO SCH (09:02)
[2017-11-07] MEDS: ECOTRIN 81 MG PO SCH (09:02)
[2017-11-07] MEDS: NORVASC 5 MG PO SCH (09:02)
[2017-11-07] MEDS: FOLATE 1 MG PO SCH (09:02)
[2017-11-07] MEDS: solu-MEDROL 40 MG IV SCH (09:02)
[2017-11-07] MEDS: ROCEPHIN 1 Gm-D5w 50 ml Bag** 1 G/50 ML IVPB IV SCH (09:02)
[2017-11-07] MEDS: Zestril 10 MG PO SCH (09:02)
[2017-11-07] MEDS: Lopressor 25MG Tab PO SCH (09:02)
[2017-11-07] MEDS: THERAGRAN MULTIVITAMIN PO SCH (09:02)
[2017-11-07] MEDS: LOPID 600 MG PO SCH (09:03)
[2017-11-07] MEDS: PATIENT OWN MEDICATION SQ SCH (09:03)
[2017-11-07] MEDS: OSELTAMIVIR PHOSPHATE 30 MG CAP PO SCH (09:03)
[2017-11-07] MEDS: Vitamin B-12 500 MCG PO SCH (09:03)
[2017-11-07 10:51] LABS: ANION GAP 22.4 MEQ/L (5-15); Calcium 8.9 mg/dL (8.5-10.1); Creatinine 1 2.19 mg/dl (0.55-1.30); Potassium 4.7 mEq/L (3.5-5.1)
[2017-11-07 11:00] LABS: Carbon Dioxide 14.1 mEq/L (21-32)
[2017-11-07 11:53] VITALS: BP 157/68; O2SAT 97
[2017-11-07] MEDS ORDERED: NovoLOG Insulin SQ ONE (12:06)
[2017-11-07 12:32] VITALS: PULSE 53
--- NOTE | 2017-11-07 13:16 | PCM.DS ---
Discharge Summary Date of Admission: 11/05/17 13:26 Admitting Physician: LAURYN MATAMOROS Consults: Consults on Case 11/05/17 14:12 Consult Nephrology ROUTINE 11/06/17 09:00 Consult Pulmonology ROUTINE Primary Care Provider: LAURYN MATAMOROS Allergies Allergies No Known Drug Allergies Allergy (Unverified 11/04/17 15:04) Hospital Summary - Hospital Course Hospital Course: Chief Complaint Diagnosis EXACERBATION COPD, ACUTE RENAL FAILURE Allergies Allergy/AdvReac Type Severity Reaction Status Date / Time No Known Drug Allergies Allergy Unverified 11/04/17 15:04 Vital Signs (Last 24 hours) Temp Pulse Resp BP Pulse Ox 11/07/17 11:00 97.6 F 53 L 16 157/68 97 11/07/17 07:17 56 L 22 96 11/07/17 07:00 98.4 F 54 L 22 136/64 96 11/07/17 03:49 97.8 F 52 L 20 102/53 11/06/17 23:56 98.1 F 60 16 128/67 92 L 11/06/17 23:08 53 L 18 94 L 11/06/17 20:00 97.8 F 57 L 19 124/59 90 L 11/06/17 19:12 59 L 20 93 L 11/06/17 16:00 98.4 F 54 L 20 122/79 90 L 11/06/17 14:44 54 L 22 93 L Home Medications Medication Instructions Recorded Confirmed Last Taken Type Albuterol 17 gm IH Q6H PRN 11/04/17 11/04/17 11/04/17 History Amlodipine Besylate 5 mg 5 mg PO DAILY 11/04/17 11/04/17 11/04/17 History [Norvasc 5 mg] Aspirin EC 81 mg [Ecotrin 81 81 mg PO DAILY 11/04/17 11/04/17 11/04/17 History mg] Budesonide/Formoterol Fumarate 6 gm IH BID 11/04/17 11/04/17 11/04/17 History [Symbicort 160-4.5 Mcg Inhaler] Cyanocobalamin 500 Mcg [Vitamin 500 mcg PO DAILY 11/04/17 11/04/17 11/04/17 History B-12 500 MCG] Folic Acid 0.8 mg PO DAILY 11/04/17 11/04/17 11/04/17 History Furosemide 40 mg [Lasix 40 40 mg PO BID 11/04/17 11/04/17 11/04/17 History MG] Gemfibrozil 600 mg [Lopid 600 600 mg PO BID 11/04/17 11/04/17 11/04/17 History mg] Insulin Aspart [Novolog Flexpen] 0 unit SQ TIDWMEALS 11/04/17 11/04/17 11/04/17 History Insulin Glargine,Hum.rec.anlog 7 unit SQ DAILY 11/04/17 11/04/17 11/04/17 History [Familia Do] Liraglutide [Victoza 2-Tushar] 1.2 mg SQ DAILY 11/04/17 11/04/17 11/04/17 History Lisinopril 10 mg [Zestril 10 10 mg PO DAILY 11/04/17 11/04/17 11/04/17 History MG] Metoprolol Tartrate 25 mg 25 mg PO BID 11/04/17 11/04/17 11/04/17 History [Lopressor 25MG Tab] Multivitamin [Multivitamins] 1 each PO DAILY 11/04/17 11/04/17 11/04/17 History Nitroglycerin 0.4 mg Tablet 0.4 mg SL Q5MIN PRN MR X 3 PRN 11/04/17 11/04/17 Unknown History [Nitrostat 0.4 MG Tablet] Potassium Chloride 20 Meq 20 meq PO BID 11/04/17 11/04/17 11/04/17 History [Klor-Con 20 MEQ] [place] Fruit [[place]] 450 mg PO DAILY 11/04/17 11/04/17 11/04/17 History Simvastatin 20Mg [Zocor 20Mg] 20 mg PO HS 11/04/17 11/04/17 11/04/17 History Warfarin Sodium 2 mg [Coumadin 2 mg PO DAILY 11/04/17 11/04/17 11/04/17 History 2 MG] Azithromycin [Zithromax] 250 mg PO DAILY 5 Days #6 tablet 11/05/17 Unknown Rx Current Medications Generic Name Dose Route Start Last Admin Trade Name Freq PRN Reason Stop Dose Admin Albuterol Sulfate 2 puff 11/04/17 15:49 Proventil Common Canister IH 12/04/17 15:48 Q6H PRN PRN Albuterol/Ipratropium 3 ml 11/04/17 15:00 11/07/17 11:40 Duoneb 0.5-3 Mg/3 Ml Neb IH 12/04/17 14:59 3 ml Q4HRT RIGO Administration Amlodipine Besylate 5 mg 11/05/17 10:00 11/07/17 09:02 Norvasc 5 Mg PO 12/05/17 09:59 5 mg DAILY RIGO Administration Aspirin 81 mg 11/05/17 10:00 11/07/17 09:02 Ecotrin 81 Mg PO 12/05/17 09:59 81 mg DAILY RIGO Administration Cyanocobalamin 500 mcg 11/05/17 10:00 11/07/17 09:03 Vitamin B-12 500 Mcg PO 12/05/17 09:59 500 mcg DAILY RIGO Administration Diphenhydramine HCl 50 mg 11/05/17 17:25 Benadryl 25 Mg Capsule PO 12/05/17 17:24 HS PRN PRN INSOMNIA Folic Acid 1 mg 11/05/17 10:00 11/07/17 09:02 Folate 1 Mg PO 12/05/17 09:59 1 mg DAILY RIGO Administration Furosemide 40 mg 11/04/17 17:00 11/07/17 09:02 Lasix 40 Mg PO 12/04/17 16:59 40 mg BID DIURETIC RIGO Administration Gemfibrozil 600 mg 11/04/17 16:30 11/07/17 09:03 Lopid 600 Mg PO 12/04/17 16:29 600 mg BIDAC RIGO Administration Ceftriaxone Sodium/Dextrose 1 g in 50 mls @ 100 mls/hr 11/04/17 17:15 09:02 Rocephin 1 Gm-D5w 50 Ml Bag IV 12/04/17 17:14 100 mls/hr Q24H10 RIGO Administration Lisinopril 10 mg 02/14/18 10:00 11/07/17 09:02 Zestril 10 Mg PO 12/05/17 09:59 10 mg DAILY RIGO Administration Methylprednisolone Sodium Succinate 40 mg 11/05/17 14:00 11/07/17 09:02 Solu-Medrol 40 Mg IV 12/05/17 13:59 40 mg BID RIGO Administration Metoprolol Tartrate 25 mg 11/04/17 22:00 11/07/17 09:02 Lopressor 25mg Tab PO 12/04/17 21:59 25 mg BID RIGO Administration Multivitamins 1 tab 11/05/17 10:00 11/07/17 09:02 Theragran Multivitamin PO 12/05/17 09:59 1 tab DAILY RIGO Administration Nitroglycerin 0.4 mg 11/04/17 15:29 Nitrostat 0.4 Mg Tablet SL 12/04/17 15:28 Q5MIN PRN MR X 3 PRN CHEST PAIN Oseltamivir Phosphate 30 mg 11/04/17 17:30 11/07/17 09:03 Oseltamivir Phosphate 30 Mg Cap PO 11/08/17 22:01 30 mg BID RIGO Administration Novolog Insulin 0 each 11/05/17 17:00 11/07/17 09:03 SQ 12/05/17 16:59 10 each TIDWM RIGO Administration Patient Own Medication 7 each 11/05/17 20:30 11/06/17 21:19 Patient Own Medication SQ 12/05/17 20:29 8 each 2030 RIGO Administration Potassium Chloride 20 meq 11/04/17 22:00 11/05/17 09:34 Klor Con 10 Meq PO 12/04/17 21:59 20 meq BID RIGO Administration Fluticasone/Salmeterol 1 each 11/04/17 19:00 11/07/17 07:12 Advair 500-50 Diskus IH 12/04/17 18:59 1 each BIDRT RIGO Administration Simvastatin 20 mg 11/04/17 22:00 11/06/17 21:14 Zocor 20mg PO 12/04/17 21:59 20 mg HS RIGO Administration Discontinued Medications Generic Name Dose Route Start Last Admin Trade Name Freq PRN Reason Stop Dose Admin Sodium Chloride 1,000 mls @ 100 mls/hr 11/04/17 17:00 11/06/17 09:51 Sodium Chloride 0.9% 1000 Ml IV 12/04/17 16:59 100 mls/hr .Q10H RIGO Administration Insulin Aspart 1 unit 11/04/17 17:00 11/05/17 12:45 Novolog Insulin SQ 12/04/17 16:59 7 unit TIDWM RIGO Administration Insulin Aspart 11 unit 11/07/17 12:06 11/07/17 12:23 Novolog Insulin SQ 11/07/17 12:07 11 unit ONCE ONE Administration Insulin Glargine 6 unit 11/05/17 10:00 11/05/17 12:48 Lantus Insulin SQ 12/05/17 09:59 Not Given DAILY RIGO Toujeo Insulin 7 each 11/05/17 17:00 11/05/17 17:12 SQ 12/05/17 16:59 Not Given 1700 RIGO Fluticasone/Salmeterol 2 puff 11/04/17 19:00 Advair Hfa 115/21 Common Canister* IH 12/04/17 18:59 BIDRT RIGO Warfarin Sodium 2 mg 11/06/17 18:00 Coumadin 2 Mg PO 12/06/17 17:59 [email or web address] RIGO Warfarin Sodium 1 mg 11/05/17 18:00 Coumadin 1 Mg PO 12/05/17 17:59 [email or web address] RIGO Intake & Output (Last 24 hours) 11/05/17 11/06/17 11/07/17 11/08/17 11:59 11:59 11:59 11:59 Intake Total 2160 4227 2320 Output Total 1050 1100 350 Balance 1110 3127 2320 -350 Weight 91.1 kg 91.1 kg Laboratory Results (Last 24 hours) 11/07/17 11/07/17 11/07/17 08:50 05:35 05:35 INR 2.08 Sodium 138 Potassium 4.7 Chloride 106 Carbon Dioxide 14.1 L* Anion Gap 22.4 H BUN 101 H Creatinine 2.19 H Estimated GFR 32 Glucose 225 H Calcium 8.9 NT-Pro-B Natriuret Pep 56975 H Orders (Last 24 hours) Category Date Time Status BMP Stat Lab 11/07/17 08:50 Completed BNP [NT PRO BNP] Stat Lab 11/07/17 05:35 Completed PROTIME WITH INR Routine Lab 11/07/17 05:35 Completed Insulin Aspart [NovoLOG Insulin] Med 11/07/17 12:06 Discontinued 11 unit SQ ONCE ONE Warfarin Sodium 2 mg [Coumadin 2 MG] Med 11/06/17 18:00 Discontinued 2 mg PO [email or web address] Patient Care Notes (Last 24 hours) 11/07/17 11:40 (created 11/07/17 12:27) Case Management Note by Karin Mejias LEFT MESSAGE WITH DR. MATAMOROS NURSE REGARDING REQUEST FOR TRANSFER. Initialized on 11/07/17 12:27 - END OF NOTE 11/07/17 11:31 Nursing Note by Antonieta Leonard Spouse aware of transfer. Spouse at bedside Initialized on 11/07/17 11:31 - END OF NOTE 11/07/17 11:30 (created 11/07/17 12:24) Case Management Note by Karin Mejias LABS CALLED TO DR. CRUMP PER [facility] [place]. DR. CRUMP REQUEST THAT PT BE TRANSFERRED TO [facility] FOR CONT CARE. PT/FAMILY IN AGREEMENT FOR DISCHARGE. HESITANT FOR TRANSFER BUT REPORTS THAT IF THE DOCTOR FEELS IT IS NECESSARY THEY WILL TRANSFER. REPORTS THAT THEY REFUSE TO GO TO [facility] THOUGH, THEY WILL ONLY GO TO [place]. Initialized on 11/07/17 12:24 - END OF NOTE 11/07/17 11:16 Nursing Note by Antonieta Leonard BMP and BNP results faxed to MD's office, office staff notified per telephone Initialized on 11/07/17 11:16 - END OF NOTE 11/07/17 09:48 Nursing Note by Antonieta Leonard Dr.'s office called, concerning consult. New orders received per Dr. Crump Initialized on 11/07/17 09:48 - END OF NOTE Patient is being transferred to [facility] for further specialized care under Hospitalist service ( Dr Olivas) - Vitals & Intake/Output Vital Signs: Vital Signs Temperature 97.6 F 11/07/17 11:00 Pulse Rate 53 L 11/07/17 11:00 Respiratory Rate 16 11/07/17 11:00 Blood Pressure 157/68 11/07/17 11:00 O2 Sat by Pulse Oximetry 97 11/07/17 11:00 Oxygen-Last Documented O2 Percentage 2 Liters = 28% Intake & Output: Intake & Output 11/05/17 11/06/17 11/07/17 11/08/17 11:59 11:59 11:59 11:59 Intake Total 2160 4227 2320 Output Total 1050 1100 350 Balance 1110 3127 2320 -350 Weight 91.1 kg 91.1 kg - Lab Result Diagrams: 11/06/17 05:49 11/07/17 08:50 Lab Results-Last 24 Hrs: Accuchecks Date 11/06/17 Date 11/06/17 Time 20:30 Time 16:30 Accucheck Value: 200 Accucheck Value: 271 Accucheck Value: 172 Accucheck Value: 172 Lab Results-Last 24 Hours 11/07/17 11/07/17 11/07/17 Range/Units 05:35 05:35 08:50 INR 2.08 (0.8-3.0) Sodium 138 (136-145) mEq/L Potassium 4.7 (3.5-5.1) mEq/L Chloride 106 (98-107) mEq/L Carbon Dioxide 14.1 L* (21-32) mEq/L Anion Gap 22.4 H (5-15) MEQ/L BUN 101 H (9-20) mg/dL Creatinine 2.19 H (0.55-1.30) mg/dl Estimated GFR 32 ML/MIN Glucose 225 H (70-110) MG/DL Calcium 8.9 (8.5-10.1) mg/dL NT-Pro-B Natriuret Pep 68397 H (0-125) pg/ml Micro Results-Entire Visit: Accuchecks Date 11/06/17 Date 11/06/17 Time 20:30 Time 16:30 Accucheck Value: 200 Accucheck Value: 271 Accucheck Value: 172 Accucheck Value: 172 - Radiology Exams Ordered Rad Exams-Entire Visit: Radiology Procedures Category Date Time Status CHEST WITHOUT CONTRAST [CT] Stat Exams 11/05/17 13:25 Completed - Procedures and Test Procedures and Tests throughout Hospitalization: Therapy Orders & Screens 11/04/17 15:00 Respiratory Nebulizer Q4H Comment: Diagnosis: SOB 11/04/17 19:00 Respiratory MDI BID Comment: ADVAIR 500/50 1 PUFF BID Diagnosis: SOB 11/05/17 03:56 Oxygen NASAL CANNULA 3 lpm Comment: TO KEEP SPO2 >92% PER R.T. PROTOCOL Diagnosis: SOB 11/05/17 08:53 Qualify for Home Oxygen TODAY Comment: Diagnosis: SOB Discharge Exam General Appearance: no apparent distress, alert Neurologic Exam: alert, oriented x 3, cooperative, normal mood/affect, nml cerebellar function, sensation nml, No motor deficits Skin Exam: normal color, warm, dry Eye Exam: PERRL, EOMI, eyes nml inspection Ears, Nose, Throat Exam: normal ENT inspection, pharynx normal, moist mucous membranes Neck Exam: normal inspection, non-tender, supple, full range of motion Respiratory Exam: diminished breath sounds, prolonged expirations, crackles/ rales, rhonchi, No respiratory distress Cardiovascular Exam: regular rate/rhythm, normal heart sounds Gastrointestinal/Abdomen Exam: soft, No tenderness, No mass Extremity Exam: normal inspection, normal range of motion Back Exam: normal inspection, normal range of motion, No CVA tenderness, No vertebral tenderness Male Genitalia Exam: deferred Rectal Exam: deferred Final Diagnosis/Problem List - Final Discharge Diagnosis/Problem (1) Acute renal failure Current Visit: Yes Status: Acute Assessment & Plan: patient is being transferred to 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 - Discharge Discharge Date: 11/07/17 Disposition: Home, Self-Care Condition: Stable Prescriptions: New Azithromycin [Zithromax] 250 mg PO DAILY 5 Days #6 tablet Continue Albuterol 17 gm IH Q6H PRN PRN Reason: Shortness Of Breath Budesonide/Formoterol Fumarate [Symbicort 160-4.5 Mcg Inhaler] 6 gm IH BID [place] Fruit [[place]] 450 mg PO DAILY Multivitamin [Multivitamins] 1 each PO DAILY Cyanocobalamin 500 Mcg [Vitamin B-12 500 MCG] 500 mcg PO DAILY Folic Acid 0.8 mg PO DAILY Aspirin EC 81 mg [Ecotrin 81 mg] 81 mg PO DAILY Lisinopril 10 mg [Zestril 10 MG] 10 mg PO DAILY Gemfibrozil 600 mg [Lopid 600 mg] 600 mg PO BID Amlodipine Besylate 5 mg [Norvasc 5 mg] 5 mg PO DAILY Simvastatin 20Mg [Zocor 20Mg] 20 mg PO HS Metoprolol Tartrate 25 mg [Lopressor 25MG Tab] 25 mg PO BID Warfarin Sodium 2 mg [Coumadin 2 MG] 2 mg PO DAILY Potassium Chloride 20 Meq [Klor-Con 20 MEQ] 20 meq PO BID Insulin Glargine,Hum.rec.anlog [Toujeo Solostar] 7 unit SQ DAILY Insulin Aspart [Novolog Flexpen] 0 unit SQ TIDWMEALS Liraglutide [Victoza 2-Tushar] 1.2 mg SQ DAILY Furosemide 40 mg [Lasix 40 MG] 40 mg PO BID Nitroglycerin 0.4 mg Tablet [Nitrostat 0.4 MG Tablet] 0.4 mg SL Q5MIN PRN MR X 3 PRN PRN Reason: Chest Pain Additional Instructions: PET scan scheduled for 11/10/2017 at [facility] at 1:15pm. Patient shoould eat a high protein breakfast (no toast) with morning meds. only water after breakfast. Patient is to follow up with Dr. Jett in the [place] office on 2017 at 2:45pm. Follow up with: CARMELO JETT [ACTIVE STAFF] - 11/20/17 2:45 pm () GUY LUEVANO [CONSULTING PHYSICIAN] - 1 Week LAURYN MATAMOROS MD [Primary Care Provider] - 1 Week
== END 2017-11-07 15:05 | disposition home or self-care (01) | DRG 683 ==
LOC: MED SURG 12:36 → OBSVTOIN 11-05 13:26
PROVIDERS: ADMIT General Practice; ATTEND General Practice
DX: N17.9 Acute kidney failure, unspecified (principal); J44.1 Chronic obstructive pulmonary disease with (acute) exacerbation; J20.8 Acute bronchitis due to other specified organisms; J61 Pneumoconiosis due to asbestos and other mineral fibers; Z79.01 Long term (current) use of anticoagulants; I25.10 Atherosclerotic heart disease of native coronary artery without angina pectoris; E11.9 Type 2 diabetes mellitus without complications; Z79.4 Long term (current) use of insulin; I48.2 Chronic atrial fibrillation; I50.9 Heart failure, unspecified; I12.9 Hypertensive chronic kidney disease with stage 1 through stage 4 chronic kidney disease, or unspecified chronic kidney disease; N18.9 Chronic kidney disease, unspecified; R53.81 Other malaise; Z79.899 Other long term (current) drug therapy
CPT/HCPCS: 36415; 36600; 71046; 71250; 80048; 80053; 82375; 82803; 82962; 83036; 83880; 85025; 85027; 85610; 87631; 94150; 94640; 94760; G0378; J0696; J2920; A9270-GY

== ENCOUNTER 2022-08-26 18:25 | Emergency (ER) | payer MEDICARE | END 2022-08-26 20:00 | disposition left against medical advice (07) | LOC: ED 18:25 | DX: Z53.21 Procedure and treatment not carried out due to patient leaving prior to being seen by health care provider (principal) ==